=== PATIENT | male | born 1985 | race American Indian/Alaskan Native ===

== ENCOUNTER 2016-08-28 09:57 | Emergency (ER) | payer BC ==
[2016-08-28 16:10] LABS: Basophils % (Auto) 1.5 % (0.0-1.8); Eosinophils % (Auto) 5.2 % (0.0-4.3); Hematocrit 41.7 % (35.5-45.6); Mean Corpuscular HGB Conc 31 % (32-34); Mean Corpuscular Volume 77 fl (84-94); Platelet Count 222 K/mm3 (140-440); Red Blood Count 5.39 M/mm3 (3.65-5.03); Red Cell Distribution Width 14.9 % (13.2-15.2); White Blood Count 3.5 K/mm3 (4.5-11.0)
[2016-08-28 16:11] LABS: Mean Corpuscular Hemoglobin 24 pg (28-32)
[2016-08-28 16:25] LABS: Alanine Aminotransferase 19 units/L (7-56); Albumin 4.4 g/dL (3.9-5); Albumin/Globulin Ratio 1.6 %; Alkaline Phosphatase 44 units/L (35-129); Amylase 73 units/L (27-131); Anion Gap 16 mmol/L; Bilirubin,Direct < 0.2 mg/dL (0-0.2); Bilirubin,Indirect 0.5 mg/dL; Bilirubin,Total 0.7 mg/dL (0.1-1.2); Blood Urea Nitrogen 9 mg/dL (9-20); Calcium 9.3 mg/dL (8.4-10.2); Carbon Dioxide 27 mmol/L (22-30); Chloride 98.1 mmol/L (98-107); Creatine Kinase 387 units/L (55-170); Glucose 95 mg/dL (75-100); Potassium 4.2 mmol/L (3.6-5.0); Sodium 137 mmol/L (137-145); Total Protein 7.2 g/dL (6.3-8.2)
--- NOTE | 2016-08-28 16:38 | Emergency Department Report ---
Vomiting/Diarrhea - HPI Chief Complaint: Nausea/Vomiting/Diarrhea Stated Complaint: ABDOMINAL PAIN Time Seen by Provider: 08/28/16 15:31 Duration: Today Severity: mild Nausea/Vomiting Severity: None Diarrhea Severity: None Pain Severity: Mild Symptoms: Yes Watery Diarrhea, Yes Able to Tolerate Fluids, No Bloody diarrhea, No Fever, No Recent Unusual Foods, No Recent Untreated Water, No Recent use of Antibiotics, No Family w/ Similar Symptoms, No Contacts w/ Similar Symptoms, No Rash, No Hematuria, No Recent URI Symptoms Other History: 30-year-old male past medical history none presents with complaint of one week of diarrhea or loose watery stools no recent antibiotic use no recent travel outside the country. States he had a few episodes of vomiting this week but not currently vomiting. States he is able to tolerate by mouth fluids without any difficulty. 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 Denies any fever or chills or bodyaches no muscle cramping reported. Patient is not a smoker. States was taking Pepto-Bismol with minimal relief of his diarrhea. ED Review of Systems ROS: Stated complaint: ABDOMINAL PAIN Other details as noted in HPI Constitutional: denies: chills, fever Eyes: denies: eye pain, eye discharge, vision change ENT: denies: ear pain, throat pain Respiratory: denies: cough, shortness of breath, wheezing Cardiovascular: denies: chest pain, palpitations Endocrine: no symptoms reported Gastrointestinal: diarrhea. denies: abdominal pain, nausea Genitourinary: denies: urgency, dysuria Musculoskeletal: denies: back pain, joint swelling, arthralgia Skin: denies: rash, lesions Neurological: denies: headache, weakness, paresthesias Psychiatric: denies: anxiety, depression Hematological/Lymphatic: denies: easy bleeding, easy bruising ED Past Medical Hx - Past Medical History Previous Medical History?: No - Surgical History Past Surgical History?: No - Social History Smoking Status: Current Some Day Smoker Substance Use Type: Alcohol - Medications Home Medications: Home Medications Medication Instructions Recorded Confirmed Last Taken Type Famotidine [Pepcid] 20 mg PO QDAY PRN #30 tablet 08/28/16 Unknown Rx Loperamide HCl [Anti-Diarrheal] 2 mg PO Q8H PRN #1 liquid 08/28/16 Unknown Rx Vomiting Diarrhea Exam - Exam General: Vital signs noted. No distress. Alert and acting appropriately. HEENT: Yes Moist Mucous Membranes, No Pharyngeal Erythema, No Pharyngeal Exudates, No Rhinorrhea, No Conjuctival Injection, No Frontal Tenderness, No Maxillary Tenderness Neck: No Adenopathy, No Rigidity Lungs: Yes Clear Lung Sounds, Yes Good Air Exchange, No Wheezes, No Stridor, No Cough, No Nasal Flaring, No Retractions, No Use of Accessory Muscles Heart exam: Regular: Yes, Murmur: No, Tachycardia: No Abdomen: Tenderness: No (abdomen soft nontender normal bowel sounds all 4 quadrants no right lower quadrant pain and Carbone's point ilial psoas and Rovsing sign negative no CVA tenderness bilaterally no suprapubic tenderness), Peritoneal Signs: No, Distention: No, Hyperactive Bowel sounds: No Skin exam: Rash: No, Edema: No, Normal turgor: Yes Neurologic: Alert and oriented, no deficits. Musculoskeletal: Unremarkable. ED Course Vital Signs 08/28/16 10:34 Temperature 97.8 F Pulse Rate 64 Respiratory 16 Rate Blood Pressure 141/86 O2 Sat by Pulse 100 Oximetry ED Medical Decision Making - Lab Data Result diagrams: 08/28/16 15:51 08/28/16 15:51 - Medical Decision Making A/P: Gastroenteritis, diarrhea, reactive airway 1-patient has clear chest x-ray O2 sat normal on room air speaking in full sentences no clinical signs of respiratory distress no evidence of chemical pneumonitis on chest x-ray, albuterol inhaler when necessary 2- pepcid and loperamide PRN 3-follow up with primary care and GI 4-patient has no clinical abdominal tenderness is tolerating by mouth fluids without any difficulty labs within normal limits and no signs of infectious diarrhea clinically or in history provided by patient Critical care attestation.: If time is entered above; I have spent that time in minutes in the direct care of this critically ill patient, excluding procedure time. ED Disposition Clinical Impression: Reactive airway disease that is not asthma Diarrhea Qualifiers: Diarrhea type: unspecified type Qualified Code(s): R19.7 - Diarrhea, unspecified Disposition: DISCHARGED TO HOME OR SELFCARE Is pt being admited?: No Does the pt Need Aspirin: No Condition: Stable Instructions: Reactive Airways Disease (ED), Loperamide (By mouth), Acute Diarrhea (ED) Prescriptions: Famotidine [Pepcid] 20 mg PO QDAY PRN #30 tablet PRN Reason: Indigestion Loperamide HCl [Anti-Diarrheal] 2 mg PO Q8H PRN #1 liquid PRN Reason: Diarrhea Referrals: KAREEM FRANK JR, MD [Staff Physician] - 3-5 Days [facility] [place]] - 3-5 Days [facility] [Provider Group] - 3-5 Days [facility] [Provider Group] - 3-5 Days Forms: Work/School Release Form(ED) Time of Disposition: 16:40
[2016-08-28 17:35] VITALS: BP 136/80
--- NOTE | 2016-08-29 08:51 | XRay Report ---
ROUTINE CHEST, TWO VIEWS: PA and lateral views demonstrate the heart and mediastinal contour to be of normal size and shape. The lungs are clear and fully expanded and the soft tissues and bony structures are normal. IMPRESSION: Normal study.
== END 2016-08-28 17:34 | disposition home or self-care (01) ==
LOC: ED 09:57
DX: R19.7 Diarrhea, unspecified (principal); J98.9 Respiratory disorder, unspecified; F17.200 Nicotine dependence, unspecified, uncomplicated
CPT/HCPCS: 36415; 71020; 80048; 80074; 82150; 82550; 83690; 83735; 85025

== ENCOUNTER 2018-08-01 17:30 | Emergency (ER) | payer BC ==
--- NOTE | 2018-08-01 17:40 | Emergency Department Report ---
Blank Doc - Documentation Documentation: Patient comes in for psych eval trying to get in [facility]. Compla ins being depression, low self esteem. Hx/o SI and ADHD. Admits to substance abuse. ETOH, Cocaine [place]. Has been off of meds for 20 years. This initial assessment diagnostic orders/clinical plan/treatment (s) is/Are subject change based on patient's health status, clinical progression and re- assessment by fellow clinical providers in the ED. Further treatment and work-up at subsequent clinical providers discretion. Patient/guardians urged not to elope from s their condition may be serious if not clinically assessed and managed. Inital order include: Psych protocol.
[2018-08-01 17:44] VITALS: BP 128/65
[2018-08-01 18:22] LABS: Eosinophils # (Auto) 0.2 K/mm3 (0.0-0.4); Eosinophils % (Auto) 5.1 % (0.0-4.3); Hematocrit 38.6 % (35.5-45.6); Hemoglobin 12.5 gm/dl (11.8-15.2); Lymphocytes # (Auto) 1.2 K/mm3 (1.2-5.4); Lymphocytes % (Auto) 30.3 % (13.4-35.0); Mean Corpuscular HGB Conc 32 % (32-34); Mean Corpuscular Volume 79 fl (84-94); Monocytes # (Auto) 0.4 K/mm3 (0.0-0.8); Monocytes % (Auto) 9.5 % (0.0-7.3); Platelet Count 252 K/mm3 (140-440); Red Blood Count 4.87 M/mm3 (3.65-5.03); Red Cell Distribution Width 14.1 % (13.2-15.2)
[2018-08-01 18:43] LABS: Alanine Aminotransferase 38 units/L (7-56); Albumin 4.2 g/dL (3.9-5); BUN/Creatinine Ratio 16; Blood Urea Nitrogen 18 mg/dL (9-20); Calcium 8.7 mg/dL (8.4-10.2); Hemolysis Index 19
--- NOTE | 2018-08-01 18:46 | Emergency Department Report ---
ED Medical Clearance HPI - General Chief complaint: Medical Clearance Stated complaint: MEDICAL CLEARANCE Time Seen by Provider: 08/01/18 17:36 Source: patient Mode of arrival: Ambulatory - History of Present Illness Initial comments: 32-year-old male presents to ED with complaint of substance abuse and requesting medical clearance for [place] facility. Patient states "my employment security officer told me either go to residential or get help. " Patient states he has been abusing cocaine, marijuana, alcohol. Reports depression, denies SI, HI, or hallucinations. Patient reports history of depression, states he was on Ritalin in elementary school and Prozac in middle school. However, patient is not currently on any psychiatric medications. Pt reports rash to tip of penis that he wants evaluated. States he had STD testing in [facility] and was told that he was negative. MD Complaint: medical clearance request -: unknown Reason for Medical Clearance: psychiatric condition Traumatic Symptoms: denies traumatic injury Associated Symptoms: denies other symptoms Treatments Prior to Arrival: none Home medications: Previous Rx's Medication Instructions Recorded Last Taken Type ALBUTEROL Inhaler (OR & NICU) 2 puff IH QID PRN #1 inhalation 08/28/16 Unknown Rx [ProAir HFA Inhaler] Famotidine [Pepcid] 20 mg PO QDAY PRN #30 tablet 08/28/16 Unknown Rx Loperamide HCl [Anti-Diarrheal] 2 mg PO Q8H PRN #1 liquid 08/28/16 Unknown Rx Allergies/Adverse reactions: Allergies Allergy/AdvReac Type Severity Reaction Status Date / Time No Known Allergies Allergy Verified 08/01/18 17:31 ED Review of Systems ROS: Stated complaint: MEDICAL CLEARANCE Other details as noted in HPI Comment: All other systems reviewed and negative Genitourinary: denies: dysuria, discharge Psychiatric: depression, other (reports substance abuse). denies: auditory hallucinations, homicidal thoughts, suicidal thoughts ED Past Medical Hx - Past Medical History Hx Pulmonary Embolism: Yes (depression,anger issues,drug abuse,ADHD,2 attempts to kill himself) Hx Asthma: Yes - Surgical History Past Surgical History?: No - Social History Smoking Status: Current Every Day Smoker Substance Use Type: Alcohol, Cocaine, Marijuana - Medications Home Medications: Home Medications Medication Instructions Recorded Confirmed Last Taken Type ALBUTEROL Inhaler (OR & NICU) 2 puff IH QID PRN #1 inhalation 08/28/16 Unknown Rx [ProAir HFA Inhaler] Famotidine [Pepcid] 20 mg PO QDAY PRN #30 tablet 08/28/16 Unknown Rx Loperamide HCl [Anti-Diarrheal] 2 mg PO Q8H PRN #1 liquid 08/28/16 Unknown Rx ED Physical Exam - General Limitations: No Limitations General appearance: alert, in no apparent distress - Head Head exam: Present: atraumatic, normocephalic - Eye Eye exam: Present: normal appearance - ENT ENT exam: Present: mucous membranes moist - Neck Neck exam: Present: normal inspection - Respiratory Respiratory exam: Present: normal lung sounds bilaterally. Absent: respiratory distress - Cardiovascular Cardiovascular Exam: Present: regular rate, normal rhythm - GI/Abdominal GI/Abdominal exam: Present: soft. Absent: distended - exam: Present: normal inspection, circumcision. Absent: urethral discharge External exam: Present: normal external exam. Absent: lesions - Extremities Exam Extremities exam: Present: normal inspection - Neurological Exam Neurological exam: Present: alert, oriented X3 - Psychiatric Psychiatric exam: Present: normal affect, normal mood - Skin Skin exam: Present: warm, dry, intact, normal color ED Course Vital Signs 08/01/18 08/01/18 17:38 18:51 Temperature 98 F Pulse Rate 76 Respiratory 18 18 Rate Blood Pressure 128/65 O2 Sat by Pulse 99 100 Oximetry - Reevaluation(s) Reevaluation #1: 08/01/18 21:38 Pt was seen by mental health business services associate. Pt was supposed to go to [facility] ([facility]), but came here instead. [facility] now closed, but business services associate wanted to do another assessment to refer patient out. However, pt stated that he could not stay and needed to go to work in the morning. I was not able to talk with patient as I was in with another critical patient. Pt left AMA. ED Medical Decision Making - Lab Data Result diagrams: 08/01/18 17:53 08/01/18 17:53 - Differential Diagnosis substance abuse ED Disposition Clinical Impression: Substance abuse Disposition: DC-07 LEFT AGAINST MED ADVICE Is pt being admited?: No Condition: Stable Referrals: RENETTA LEVY MD [Primary Care Provider] - 3-5 Days Time of Disposition: 21:43
[2018-08-01 18:59] LABS: Bilirubin,Urine NEG (Negative); Blood,Urine NEG (Negative); Color,Urine Yellow (Yellow); Mucus,Urine 1+ /HPF; Protein,Urine <15 mg/dL mg/dL (Negative); WBC,Urine < 1.0 /HPF (0.0-6.0)
[2018-08-01 19:10] LABS: Amphetamine Screen,Urine PRESUMPTIVE NEGATIVE; Benzodiazepines Screen,Urine PRESUMPTIVE NEGATIVE; Cocaine Screen,Urine PRESUMPTIVE NEGATIVE; Methadone Screen,Urine PRESUMPTIVE NEGATIVE; Opiate Screen,Urine PRESUMPTIVE NEGATIVE
[2018-08-01 19:25] LABS: Cannabinoid Screen,Urine PRESUMPTIVE POSITIVE
== END 2018-08-01 21:48 | disposition left against medical advice (07) ==
LOC: ED 17:30
DX: F14.10 Cocaine abuse, uncomplicated (principal); F32.9 Major depressive disorder, single episode, unspecified; J45.909 Unspecified asthma, uncomplicated; F17.200 Nicotine dependence, unspecified, uncomplicated; Z86.711 Personal history of pulmonary embolism
CPT/HCPCS: 36415; 80053; 80307; 81001; 85025; 99283; G0480; 80320

== ENCOUNTER 2022-01-01 20:18 | Emergency (ER) | payer SELFPAY ==
[2022-01-01 20:52] VITALS: BP 122/82
[2022-01-01 22:15] LABS: Benzodiazepines Screen,Urine Negative; Methadone Screen,Urine Negative; Opiate Screen,Urine Negative
[2022-01-01 22:20] LABS: Mucus,Urine FEW /HPF; WBC,Urine < 1.0 /HPF (0.0-6.0)
[2022-01-01 22:54] LABS: Amphetamine Screen,Urine Positive; Cannabinoid Screen,Urine Positive; Cocaine Screen,Urine Positive
--- NOTE | 2022-01-01 23:05 | Emergency Department Report ---
ED Psych HPI - General Chief Complaint: Psych Stated Complaint: DEPRESSION/MENTAL HEALTH Time Seen by Provider: 01/01/22 21:04 Source: patient, EMS Mode of arrival: Stretcher Limitations: No Limitations - History of Present Illness Initial Comments: 36-year-old male with a past medical history of autism, Asperger's, social anxiety, and asthma presents to the hospital for psychiatric evaluation. 911 was called because apparently called the crisis line and expressed that he did not want to live anymore as per triage report. Patient denies expressing suicidal thoughts. Patient felt like he needed someone to talk to and states he does not feel like he belongs in his world. He states that Guy decides to take him that is fine but he denies wanting to intentionally harm himself, harm anyone else, and denies having hallucinations. Patient does speak a lot and is tangential and has a lot of scientologist content to his speech. He does have a job and wants to go to work. He does not currently take any psychiatric medications. He denies any physical complaints. Patient currently resides with friends. Pt does endorse drug use. - Related Data Previous Rx's Medication Instructions Recorded Last Taken Type Albuterol Mdi (or & Nicu Only) 2 puff IH QID PRN #1 inhalation 08/28/16 Unknown Rx [ProAir HFA Inhaler] Famotidine [Pepcid] 20 mg PO QDAY PRN #30 tablet 08/28/16 Unknown Rx Loperamide HCl [Anti-Diarrheal] 2 mg PO Q8H PRN #1 liquid 08/28/16 Unknown Rx Allergies Allergy/AdvReac Type Severity Reaction Status Date / Time No Known Allergies Allergy Verified 08/01/18 17:31 ED Review of Systems ROS: Stated complaint: DEPRESSION/MENTAL HEALTH Other details as noted in HPI Comment: All other systems reviewed and negative ED Past Medical Hx - Past Medical History Previous Medical History?: Yes Hx Psychiatric Treatment: Yes (depression,anger issues,drug abuse,ADHD,2 attempts to kill himself, asperge) Hx Asthma: Yes Additional medical history: Autism, Aspergers, social anxiety - Surgical History Past Surgical History?: Yes Additional Surgical History: Right leg - Social History Smoking Status: Current Every Day Smoker Substance Use Type: Marijuana - Medications Home Medications: Home Medications Medication Instructions Recorded Confirmed Last Taken Type Albuterol Mdi (or & Nicu Only) 2 puff IH QID PRN #1 inhalation 08/28/16 Unknown Rx [ProAir HFA Inhaler] Famotidine [Pepcid] 20 mg PO QDAY PRN #30 tablet 08/28/16 Unknown Rx Loperamide HCl [Anti-Diarrheal] 2 mg PO Q8H PRN #1 liquid 08/28/16 Unknown Rx ED Physical Exam - General Limitations: No Limitations - Other Other exam information: General: No acute distress Head: Atraumatic Eyes: normal appearance ENT: Moist mucous membranes Neck: Normal appearance, no midline tenderness Chest: Clear to auscultation bilaterally CV: Regular rate and rhythm Abdomen: Soft, normal bowel sounds, nontender, nondistended, no rebound or guarding Back: Normal inspection Extremity: Normal inspection, full range of motion Neuro: Alert O x 3, no facial asymmetry, speech clear, no gross motor sensory deficit Psych: Hyperverbal, tangential however, does answer direct questions and makes eye count. Continuously denies suicidal ideation or psychosis. Skin: No rash ED Course Vital Signs 01/01/22 01/01/22 20:19 21:49 Temperature 98.5 F Pulse Rate 72 Respiratory 18 Rate Blood Pressure 122/82 O2 Sat by Pulse 100 98 Oximetry ED Medical Decision Making - Medical Decision Making Patient refused blood draw. Based on my initial assessment I did not feel that patient met 1013 criteria. I requested that Octavia with mental health to evaluate patient. Please refer to her note. Based on her assessment she also feels that patient does not meet criteria for 1013. UDS is positive for amphetamines, cocaine, and marijuana. patient will be discharged with outpatient psychiatric follow up Critical care attestation.: If time is entered above; I have spent that time in minutes in the direct care of this critically ill patient, excluding procedure time. ED Disposition Clinical Impression: Cocaine abuse, Amphetamine abuse, Marijuana abuse, Mental health disorder Disposition: 01 HOME / SELF CARE / HOMELESS Is pt being admited?: No Does the pt Need Aspirin: No Condition: Stable Instructions: Substance Use Disorder and Mental Illness Additional Instructions: OUTPATIENT MENTAL HEALTH RESOURCES [facility], [facility] Zehra Dodd MD: [address] [place] [address] [place] [address] [facility]: [facility] [address] [place] [address] [place] [address] [phone] [facility]: [facility]: [address] [facility] [address] [place] [address] [facility] [address] [facility]: Damian Wren MD: [address] [facility] [address] [facility] [address] [facility]: [address] [place] [phone] [place] CRISIS AND ACCESS LINE: In case of an emergency, please contact the following numbers: [place] Crisis and Access Line: Number: Crisis Text Line: (Text START) Number: 069136 Suicide Prevention Line: Number: Emergency Number: 911 SUBSTANCE ABUSE PROGRAMS: [facility]: Location: [place], [place] Margarita Parudi! Address: [address] [place] [address] [facility] Recovery: Address: [address] [place] [address] [facility]: Address: [address] [place] [address] [facility] Community: Address: [address] [place] [address] [facility] Address: [address] [place] [address]. Please contact above numbers to attempt placement into free based program. Medicaid Programs: [facility]: Address: [address] [place] [address] [facility]: Address: [address] [place] [address] Professional and Agency Contacts To help [facility] Crises (26/12) [place] Crisis Line: Suicide Prevention Line: Crisis Text Line: Text START to 855320 Emergency: 911 Outpatient COMMUNITY Behavioral Health Resources: [facility]: [facility] [address] [place], [place] [address] [facility] [address] [place] [address] Monday thru Monday - 8am - 5pm Call to schedule an assessment for mental health and substance abuse programs [facility] Address: [address] [place] [address] Monday thru Monday- 7am-2pm [facility] Address: [address] [place] [address] Monday thru Monday: 8:30AM-5PM Referrals: ABE MO MD [Primary Care Provider] - 3-5 Days Time of Disposition: 23:32
[2022-01-01 23:09] LABS: Bilirubin,Urine Negative (Negative); Blood,Urine Negative (Negative); Color,Urine Yellow (Yellow)
== END 2022-01-02 00:10 | disposition home or self-care (01) ==
LOC: ED 20:18
DX: F14.10 Cocaine abuse, uncomplicated (principal); F15.10 Other stimulant abuse, uncomplicated; F12.10 Cannabis abuse, uncomplicated; F99 Mental disorder, not otherwise specified; F17.200 Nicotine dependence, unspecified, uncomplicated; J45.909 Unspecified asthma, uncomplicated; Z79.899 Other long term (current) drug therapy
CPT/HCPCS: 80307; 81001; 99284